=== PATIENT | female | born 1930 | race Caucasian/White ===

== ENCOUNTER 2019-03-25 11:10 | Emergency (ER) | payer MEDICARE, OTHER ==
[~2019-03-25] VITALS: Ht 154.9 cm; Wt 84.1 kg
[~2019-03-25 11:10] MED LIST: ASPI81TA85 PO; ATOR1TAB21 PO; BACITAB PO; CLEO75CA PO; CO Q200C PO; DEXA1TAB8 PO; FIBE625T4 PO; LATA0.002 OU; OMEG100011 PO; PROT1TAB2 PO; SUPER COLLAGEN PO; VITATAB11 PO; [UNRECOGNIZED DRUG - OTHER] PO
[2019-03-25] MEDS ORDERED: D3 S20002 PO (11:23)
--- NOTE | 2019-03-25 12:56 | REP ---
Clinical: Pain. Technique: Internal rotation, external rotation, and Y view of the right shoulder. Findings: Arthritic changes include cortical irregularity at the acromioclavicular joint as well as a bulky osteophyte along the inferior margin of the humeral head with subtle blunting to the calcified glenoid rim. The subacromial space is normal. No acute fracture or dislocation is appreciated. The surrounding soft tissues are unremarkable. Impression: Mild arthritic degenerative changes. No acute fracture or dislocation. Electronically Signed by Idris Osuna MD 03/25/2019 12:47 P
--- NOTE | 2019-03-25 12:58 | REP ---
Clinical: Pain. Technique: AP, lateral, bilateral oblique and sunrise views of the left knee. 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 No acute fracture dislocation identified. No definite effusion. Impression: Mild/early moderate tricompartmental degenerative changes. No obvious acute fracture or dislocation. Electronically Signed by Idris Osuna MD 03/25/2019 12:50 P
[2019-03-25 13:17] VITALS: BP 137/63
== END 2019-03-25 13:22 | disposition home or self-care (01) ==
LOC: M ED 11:10
DX: M19.011 Primary osteoarthritis, right shoulder (principal); M17.12 Unilateral primary osteoarthritis, left knee; S40.011A Contusion of right shoulder, initial encounter; S43.421A Sprain of right rotator cuff capsule, initial encounter; W18.2XXA Fall in (into) shower or empty bathtub, initial encounter; Y92.89 Other specified places as the place of occurrence of the external cause; E78.5 Hyperlipidemia, unspecified; K21.9 Gastro-esophageal reflux disease without esophagitis; Z79.899 Other long term (current) drug therapy; Z79.82 Long term (current) use of aspirin; Z88.0 Allergy status to penicillin; Z88.1 Allergy status to other antibiotic agents; Z88.2 Allergy status to sulfonamides